=== PATIENT | female | born 1975 | race Asian ===

== ENCOUNTER → 2018-05-28 | Outpatient (CLI) | payer OTHER | END | disposition home or self-care (01) | LOC: CFH 08:14 | PROVIDERS: ATTEND Nurse Practitioner | DX: Z12.31 Encounter for screening mammogram for malignant neoplasm of breast (principal) | CPT/HCPCS: 77065; 77067; G0279 ==

== ENCOUNTER 2021-05-28 17:53 | Emergency (ER) | payer OTHER ==
[~2021-05-28] VITALS: Ht 167.6 cm; Wt 61.3 kg
[2021-05-28 19:23] LABS: MICROSCOPIC INDICATED
[2021-05-28] MEDS ORDERED: MORPHINE SULFATE 4 MG/ML, 1ML ONE (20:18)
[2021-05-28] MEDS ORDERED: ONDANSETRON 2MG/ML, 2ML ONE (20:18)
--- NOTE | 2021-05-28 20:20 | NUR ---
FIRST CONTAC W PT WHO IS RESTING COMFORTABLY ON GURNEY, AWAKE/ALERT; NAD NOTED. PT REPORTS 8/10 INTERMITTENT EPIGASTRIC/RUQ PAIN FOLLOWING EATING X TODAY AT 1100. PAIN RADIATES TO BACK AND LASTS APPROX 45-60 MIN; NO RELIEVING FACTORS. +NAUSEA. NO ABD/GI HX. IV ESTBALISHED. LABS DRAWN. PT MEDICATED PER EMAR FOR PAIN/NAUSEA. TECH AT BEDSIDE FOR US. BP/SPO2 MONITORING IN PLACE.
[2021-05-28] MEDS ORDERED: ONDANSETRON 2MG/ML, 2ML IVPush ONE (20:30)
[2021-05-28] MEDS ORDERED: SODIUM CHLORIDE FLUSH 10ML SYR IVF ONE (20:30)
[2021-05-28] MEDS ORDERED: MORPHINE SULFATE 4 MG/ML, 1ML IVPush PRN (20:30)
[2021-05-28 20:51] LABS: BASOPHILS % (AUTO) 1 % (0-1); EOSINOPHILS % (AUTO) 3 % (1-7); LYMPHOCYTES % (AUTO) 14 % (22-44); MEAN CORPUSCULAR HEMOGLOBIN 30.3 pg (27.0-34.8); MEAN CORPUSCULAR HGB CONC 33.8 g/dL (32.4-35.8); MONOCYTES % (AUTO) 7 % (2-9); NEUTROPHILS % (AUTO) 76 % (42-75); PLATELET COUNT 326 x10^3/uL (130-400); RED BLOOD COUNT 4.61 x10^6/uL (3.82-5.3); RED CELL DISTRIBUTION WIDTH 13.8 % (9.6-15.2)
[2021-05-28 21:37] LABS: ALANINE AMINOTRANSFERASE 24 U/L (12-78); ANION GAP 9 mmol/L (5-15); CALCIUM 9.4 mg/dL (8.5-10.1); CHLORIDE 104 mmol/L (98-107)
[2021-05-28 21:42] LABS: ALKALINE PHOSPHATASE 67 U/L (45-117); BILIRUBIN,TOTAL 0.2 mg/dL (0.2-1.0); CREATININE 0.52 mg/dL (0.55-1.02)
--- NOTE | 2021-05-28 21:51 | NUR ---
PT REPORTS IMPROVED ABD PAIN W MEDICATIONS. CHART UP FOR RECHECK. AWAITING ERP RE EVAL
[2021-05-28 21:52] VITALS: BP 99/50
--- NOTE | 2021-05-28 23:09 | NUR ---
DC EDUCATION PROVIDED, PT DEMONSTRATES UNDERSTANDING. PT AMBULATED STEADILY TO DC WITH RN AND SO. SO TO TRANSPORT PT HOME
== END 2021-05-28 23:11 | disposition home or self-care (01) ==
LOC: ED 21:40
DX: R10.11 Right upper quadrant pain (principal); R93.5 Abnormal findings on diagnostic imaging of other abdominal regions, including retroperitoneum
CPT/HCPCS: 36415; 76700; 80047; 80053; 81001; 83690; 84703; 85025; 87086; 96374; 96375; 99284; J2270; J2405